=== PATIENT | male | born 1945 | race Caucasian/White ===

== ENCOUNTER 2017-05-08 09:50 | Day surgery (SDC) | payer MEDICARE, OTHER | END 2017-05-08 13:05 | disposition home or self-care (01) | LOC: SDC 09:50 | PROC: 08RJ3JZ Replacement of Right Lens with Synthetic Substitute, Percutaneous Approach (ICD-10-PCS; principal; 2017-05-08) | DX: H26.9 Unspecified cataract (principal) ==

== ENCOUNTER 2017-05-22 07:20 | Day surgery (SDC) | payer MEDICARE, OTHER | END 2017-05-22 09:58 | disposition home or self-care (01) | LOC: SDC 07:20 | PROVIDERS: Ophthalmology | PROC: 08RK3JZ Replacement of Left Lens with Synthetic Substitute, Percutaneous Approach (ICD-10-PCS; principal; 2017-05-22 09:30) | DX: H25.813 Combined forms of age-related cataract, bilateral (principal); H53.8 Other visual disturbances; H53.149 Visual discomfort, unspecified | CPT/HCPCS: V2632 ==